=== PATIENT | male | born 1980 | race Caucasian/White ===

== ENCOUNTER 2016-06-28 10:41 | Emergency (ER) | payer BC, OTHER ==
--- NOTE | 2016-06-28 11:17 | EDM.PDOC ---
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 He has had a viral URI for 4-5 days with some nasal congestion with a cough which has kept him awake sometimes. He coughed up a little blood -tinged sputum a couple times yesterday which was a concern. He feels like there is some mucous which he can only occasionally cough up. He has occasional clicking in the right ear. Severity: moderate Quality: Reports: Ache, Dull, Sharp (with coughing) Improves with: Reports: None Worsens with: Reports: Breathing Associated Symptoms (General): Reports: cough. 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 Denies: Wheezing Cardiovascular: Reports: Chest pain (bilateral anterior chest pain, dull and worsened with coughing. No shortness of breath.) Endocrine: Reports: no symptoms GI/Abdominal: Reports: No symptoms Skin: Reports: no symptoms Neurological: Reports: No Symptoms ED EXAM, GENERAL - Physical Exam Exam: See Below Exam Limited By: No limitations General Appearance: alert, WD/WN, no apparent distress Eye Exam: bilateral eye: normal inspection Ears: normal external exam, normal canal, hearing grossly normal, normal TMs Ear Exam: bilateral ear: auricle normal (normal), canal normal (normal), TM normal (normal) Nose: normal mucosa. No: nasal tenderness Throat/Mouth: Normal lips, Normal teeth, Other (trace clear post-nasal drainage) Neck: normal inspection, supple, non-tender, full range of motion Respiratory/Chest: no respiratory distress, lungs clear, normal breath sounds Cardiovascular: normal peripheral pulses, regular rate, rhythm, no edema, no gallop, no JVD, no murmur, no rub Peripheral Pulses: 2+: carotid (L), carotid (R) GI/Abdominal: soft, non tender Neurological: alert, oriented, CN II-XII intact, normal cognition, normal gait, normal reflexes, no motor/sensory deficits Course - Vital Signs Last Recorded V/S: Last Vital Signs Temp 98.4 F 06/28/16 10:55 Pulse 107 H 06/28/16 10:55 Resp 16 06/28/16 10:55 BP 136/84 06/28/16 10:55 Pulse Ox 100 06/28/16 10:55 Departure - Departure Time of Disposition: 11:33 Disposition: Home, Self-Care 01 Condition: good Clinical Impression: URI (upper respiratory infection), Eustachian tube dysfunction Instructions: Chest Wall Pain, [id number], Upper Respiratory Infection, Adult , [id number] Forms: ED Department Discharge Additional Instructions: Follow up with your doctor in a couple weeks if not better and sooner if worse. Take Robitussin with codeine, 10 ml orally every 4 hours as needed for a cough.
[2016-06-28 11:18] VITALS: BP 136/84
== END 2016-06-28 11:45 | disposition home or self-care (01) ==
LOC: DL.ED 10:41
DX: J06.9 Acute upper respiratory infection, unspecified (principal); H69.91 Unspecified Eustachian tube disorder, right ear; Z88.0 Allergy status to penicillin; Z88.1 Allergy status to other antibiotic agents; Z90.49 Acquired absence of other specified parts of digestive tract
CPT/HCPCS: 99283

== ENCOUNTER 2021-07-05 04:05 | Emergency (ER) | payer BC, OTHER ==
[2021-07-05 04:29] VITALS: BP 153/90; PULSE 80
[2021-07-05] MEDS ORDERED: Sodium Chloride 0.9% 1,000 ML IV ONE (04:30)
[2021-07-05] MEDS ORDERED: Ketorolac 30 MG/ML SDV IVPUSH ONE (04:30)
[2021-07-05] MEDS ORDERED: Iopamidol 612 MG/ML 100 ML Bottle IVPUSH ONE (06:11)
== END 2021-07-05 08:28 | disposition home or self-care (01) ==
LOC: DL.ED 04:05
DX: N13.2 Hydronephrosis with renal and ureteral calculous obstruction (principal); K21.9 Gastro-esophageal reflux disease without esophagitis; Z88.0 Allergy status to penicillin; Z88.1 Allergy status to other antibiotic agents; Z79.899 Other long term (current) drug therapy; Z72.0 Tobacco use
CPT/HCPCS: 36415; 74177; 80053; 81001; 85025; 96374; 99284-25; J1885; J7030; Q9967

== ENCOUNTER 2021-09-13 13:01 | Emergency (ER) | payer BC ==
[2021-09-13] MEDS ORDERED: Benzonatate 100 MG Cap PO ONE ×2 (13:02→15:30)
[2021-09-13 13:23] VITALS: BP 138/91; PULSE 95
[2021-09-13 14:30] LABS: ANION GAP 12.7 mEq/L (7-13); CHLORIDE,CL 105 mmol/L (98-107); SODIUM,NA 140 mmol/L (136-145)
[2021-09-13 14:31] LABS: ESTIMATED GFR 88 mL/min (>=60)
[2021-09-13] MEDS ORDERED: Dexamethasone 6 MG TABLET PO ONE (15:30)
[2021-09-13] MEDS ORDERED: Benzonatate 100 MG Cap ONE (15:41)
[2021-09-13] MEDS ORDERED: Dexamethasone 6 MG TABLET ONE (15:41)
== END 2021-09-13 15:51 | disposition home or self-care (01) ==
LOC: DL.ED 13:01
DX: U07.1 COVID-19 (principal); R09.1 Pleurisy; K21.9 Gastro-esophageal reflux disease without esophagitis; Z88.0 Allergy status to penicillin; Z88.1 Allergy status to other antibiotic agents; Z79.899 Other long term (current) drug therapy
CPT/HCPCS: 36415; 80053; 82150; 83605; 83690; 84145; 84484; 85025; 85379; 99284; A9270; J8540; 93010

== ENCOUNTER 2024-06-13 05:16 | Day surgery (SDC) | payer BC ==
[2024-06-13] MEDS: Dextrose 5%-0.45% NaCl 1,000 ML IV SCH (05:42)
[2024-06-13] MEDS ORDERED: fentaNYL 100 MCG/2 ML SDV IV ONE (06:21)
[2024-06-13] MEDS ORDERED: Midazolam 1 MG/ML 2 ML SDV ONE (06:21)
[2024-06-13] MEDS ORDERED: Midazolam 1 MG/ML 2 ML SDV IV ONE (06:21)
[2024-06-13] MEDS ORDERED: fentaNYL 100 MCG/2 ML SDV ONE (06:21)
[2024-06-13] MEDS: fentaNYL 100 MCG/2 ML SDV IV ONE ×2 (06:25)
[2024-06-13] MEDS: Midazolam 1 MG/ML 2 ML SDV IV ONE ×2 (06:26)
[2024-06-13 08:36] VITALS: BP 101/73; PULSE 60
== END 2024-06-13 08:38 | disposition home or self-care (01) ==
LOC: DL.ENDO 05:16
PROVIDERS: ATTEND Internal Medicine Gastroenterology
DX: K21.00 Gastro-esophageal reflux disease with esophagitis, without bleeding (principal); K22.70 Barrett's esophagus without dysplasia; E66.09 Other obesity due to excess calories; Z68.32 Body mass index [BMI] 32.0-32.9, adult; Z79.899 Other long term (current) drug therapy; Z88.5 Allergy status to narcotic agent; Z88.0 Allergy status to penicillin
CPT/HCPCS: J2250; J3010

== ENCOUNTER 2024-06-15 06:45 | Day surgery (SDC) | payer BC ==
[2024-06-15] MEDS ORDERED: fentaNYL 100 MCG/2 ML SDV ONE (07:24)
[2024-06-15] MEDS ORDERED: Midazolam 1 MG/ML 2 ML SDV IV ONE (07:24)
[2024-06-15] MEDS ORDERED: fentaNYL 100 MCG/2 ML SDV IV ONE (07:24)
[2024-06-15] MEDS ORDERED: Midazolam 1 MG/ML 2 ML SDV ONE (07:24)
[2024-06-15] MEDS: Dextrose 5%-0.45% NaCl 1,000 ML IV SCH (07:24)
[2024-06-15] MEDS: fentaNYL 100 MCG/2 ML SDV IV ONE ×5 (08:02→08:11)
[2024-06-15] MEDS: Midazolam 1 MG/ML 2 ML SDV IV ONE ×6 (08:03→08:08)
[2024-06-15 09:17] VITALS: BP 102/64; PULSE 50
== END 2024-06-15 09:28 | disposition home or self-care (01) ==
LOC: DL.ENDO 06:45
PROVIDERS: ATTEND Internal Medicine Gastroenterology
DX: Z12.11 Encounter for screening for malignant neoplasm of colon (principal); K57.30 Diverticulosis of large intestine without perforation or abscess without bleeding; K21.9 Gastro-esophageal reflux disease without esophagitis; E66.09 Other obesity due to excess calories; Z68.32 Body mass index [BMI] 32.0-32.9, adult; Z79.899 Other long term (current) drug therapy; Z88.0 Allergy status to penicillin; Z88.5 Allergy status to narcotic agent
CPT/HCPCS: J2250; J3010